=== PATIENT | male | born 1965 | race Caucasian/White ===

== ENCOUNTER 2018-11-16 17:36 | Emergency (ER) | payer SELFPAY ==
[~2018-11-16] VITALS: Ht 172.7 cm; Wt 77.1 kg
[2018-11-16 17:48] VITALS: BP 178/113
== END 2018-11-16 19:15 | disposition left against medical advice (07) ==
LOC: ER 17:42
DX: M79.605 Pain in left leg (principal); Z53.21 Procedure and treatment not carried out due to patient leaving prior to being seen by health care provider